=== PATIENT | female | born 1960 | race Caucasian/White ===

== ENCOUNTER 2017-10-10 07:04 | Day surgery (SDC) | payer BC ==
[~2017-10-10 07:04] MED LIST: Lactated Ringers 1,000 ML IV SCH; Levofloxacin/Dextrose 5%-Water 750 MG in Premix Bag 1 BAG IV ONE
[2017-10-10] MEDS ORDERED: fentaNYL 250 MCG/5 ML SDV ONE (07:23)
[2017-10-10] MEDS ORDERED: Rocuronium 10 MG/ML 10 ML Syringe ONE (07:23)
[2017-10-10] MEDS ORDERED: Midazolam 1 MG/ML 2 ML SDV ONE (07:23)
[2017-10-10] MEDS ORDERED: Lidocaine 2% 5 ML SDV ONE (07:23)
[2017-10-10] MEDS ORDERED: Propofol 200 MG/20 ML SDV ONE (07:23)
[2017-10-10] MEDS ORDERED: Ondansetron 4 MG/2 ML SDV ONE (07:23)
[2017-10-10] MEDS ORDERED: Bupivacaine 25%/EPINEPHrine/PF 30 ML ONE (07:34)
[2017-10-10] MEDS ORDERED: Octyl 2-Cyanoacrylate 1 Tube ONE (07:35)
--- NOTE | 2017-10-10 07:55 | PCM.PREANE ---
Preanesthetic Assessment - Anesthesia/Transfusion/Family Hx Anesthesia History: Prior Anesthesia Without Reaction Family History of Anesthesia Reaction: No Transfusion History: No Prior Transfusion(s) Intubation History: Unknown - Review of Systems General: No Symptoms Pulmonary: No Symptoms, Other (usus inhaler for asthma) Cardiovascular: No Symptoms Gastrointestinal: Other (GERD and pain after meals) Neurological: No Symptoms Other: Reports: None - Physical Assessment NPO Status Date: 10/09/17 NPO Status Time: 19:00 O2 Sat by Pulse Oximetry: 99 Respiratory Rate: 15 Vital Signs: Last Vital Signs Temp 97.7 F 10/10/17 07:41 Pulse 68 10/10/17 07:41 Resp 15 10/10/17 07:41 BP 125/70 10/10/17 07:41 Pulse Ox 99 10/10/17 07:41 Height: 5 ft 6 in Weight: 184 lb ASA Class: 2 Mental Status: Alert & Oriented x3 Airway Class: Mallampati = 1 Dentition: Reports: Normal Dentition Thyro-Mental Finger Breadths: 3 Mouth Opening Finger Breadths: 3 Lungs: Clear to Auscultation, Normal Respiratory Effort Cardiovascular: Regular Rate, Regular Rhythm, No Murmurs - Allergies Allergies/Adverse Reactions: Allergies Allergy/AdvReac Type Severity Reaction Status Date / Time cefuroxime [From Ceftin] Allergy Itching Verified 10/07/17 13:50 ibuprofen Allergy Itching Verified 10/07/17 13:50 meperidine [From Demerol] Allergy Hives Verified 10/07/17 13:50 morphine Allergy Hives Verified 10/07/17 13:50 - Blood Blood Available: No Product(s) Available: None - Anesthesia Plan Pre-Op Medication Ordered: None - Acknowledgements Anesthesia Type Planned: General Anesthesia (OET) Pt an Appropriate Candidate for the Planned Anesthesia: Yes Alternatives and Risks of Anesthesia Discussed w Pt/Guardian: Yes Pt/Guardian Understands and Agrees with Anesthesia Plan: Yes PreAnesthesia Questionnaire HEENT History: Reports: Allergic Rhinitis, Other (See Below) Other HEENT History: wears glasses Respiratory History: Reports: Asthma Other Respiratory History: states asthma well controlled, has not used rescue inhaler for over a year Gastrointestinal History: Reports: GERD Musculoskeletal History: Reports: Osteoarthritis, Osteoporosis Other Musculoskeletal History: takes HCTZ for osteoporosis Psychiatric History: Reports: Depression Endocrine/Metabolic History: Reports: Hypothyroidism - Past Surgical History Head Surgeries/Procedures: Reports: None HEENT Surgical History: Reports: Naso-Sinus Surgery, Tonsillectomy Female Surgical History: Reports: Breast Implant, Section Musculoskeletal Surgical History: Reports: Hip Replacement, Knee Replacement - SUBSTANCE USE Smoking Status *Q: Former Smoker Tobacco Use Within Last Twelve Months: No Recreational Drug Use History: No - HOME MEDS Home Medications: Home Meds Albuterol [Ventolin HFA] 2 puff INH TID PRN 10/07/17 [History] Ca Carbonate/Vitamin D3/Vit K [Calcium + D Soft Chewable Tab] 2 tab PO DAILY [History] Celecoxib [CeleBREX] 200 mg PO DAILY 10/07/17 [History] Estradiol Micronized 1 dose TOP DAILY 10/07/17 [History] Fexofenadine/Pseudoephedrine [Jaki-D 24 Hour Tablet] 1 tab PO DAILY 10/07/17 [History] Fluticasone/Salmeterol [Advair 250-50] 1 puff INH BID 10/07/17 [History] Hydrochlorothiazide 12.5 mg PO DAILY 10/07/17 [History] Multivitamin [Multiple Vitamins] 1 tab PO DAILY 10/07/17 [History] Potassium Chloride 2 cap PO DAILY 10/07/17 [History] Progesterone,Micronized [Progesterone] 100 mg PO BID 10/07/17 [History] Thyroid,Pork [Catlett Thyroid] 60 mg PO DAILY 10/07/17 [History] Venlafaxine HCl [Venlafaxine HCl ER] 75 mg PO DAILY 10/07/17 [History] Zafirlukast [Accolate] 20 mg PO BID 10/07/17 [History] - CURRENT (IN HOUSE) MEDS Current Meds: Current Medications Lactated Ringer's (Ringers, Lactated) 1,000 mls @ 125 mls/hr IV ASDIRECTED MATTEO Last Admin: 10/10/17 07:24 Dose: 125 mls/hr Discontinued Medications Fentanyl (Sublimaze) Confirm Administered Dose 250 mcg .ROUTE .STK-MED ONE Stop: 10/10/17 07:24 Levofloxacin/Dextrose 750 mg/ (Premix) 150 mls @ 100 mls/hr IV ONETIME ONE Stop: 10/08/17 16:43 Levofloxacin/Dextrose 750 mg/ (Premix) 150 mls @ 100 mls/hr IV ONETIME ONE Stop: 10/10/17 06:29 Last Admin: 10/10/17 07:24 Dose: 100 mls/hr Bupivacaine HCl/Epinephrine Bitart (Sensorc Mpf 0.25%-Epi 1:[id number]) Confirm Administered Dose 30 mls @ as directed .ROUTE .STK-MED ONE Stop: 10/10/17 07:35 Lidocaine (Xylocaine-Mpf 2%) Confirm Administered Dose 5 ml .ROUTE .STK-MED ONE Stop: 10/10/17 07:24 Midazolam HCl (Versed 1 Mg/Ml) Confirm Administered Dose 2 mg .ROUTE .STK-MED ONE Stop: 10/10/17 07:24 Octyl Cyanoacrylate (Dermabond Advance) Confirm Administered Dose 1 applic .ROUTE .STK-MED ONE Stop: 10/10/17 07:36 Ondansetron HCl (Zofran) Confirm Administered Dose 4 mg .ROUTE .STK-MED ONE Stop: 10/10/17 07:24 Propofol (Diprivan 20 Ml) Confirm Administered Dose 200 mg .ROUTE .STK-MED ONE Stop: 10/10/17 07:24 Rocuronium [place] (Zemuron) Confirm Administered Dose 100 mg .ROUTE .STK-MED ONE Stop: 10/10/17 07:24
[2017-10-10] MEDS ORDERED: Glycopyrrolate 0.2 MG/ML SDV ONE (08:52)
[2017-10-10] MEDS ORDERED: Neostigmine Methylsulfate 1 MG/ML 5 ML Syringe ONE (08:52)
--- NOTE | 2017-10-10 09:25 | PCM.OPNOTE ---
- General Post-Op/Procedure Note Date of Surgery/Procedure: 10/10/17 Operative Procedure(s): lap miesha Findings: gb yellow and green, interact w surrounding, cw chonic and acute cholecystitis; [id number] Pre Op Diagnosis: biliary dyskinesia Post-Op Diagnosis: Same Anesthesia Technique: General ET Tube (stephen), Moderate Sedation Primary Surgeon: Lester Ward Pathology: sent Complications: None Condition: Good
[2017-10-10] MEDS: fentaNYL 100 MCG/2 ML SDV IVPUSH PRN ×4 (09:29→09:49)
--- NOTE | 2017-10-10 09:38 | PCM.POSTAN ---
POST ANESTHESIA ASSESSMENT - MENTAL STATUS Mental Status: Oriented, Somnolent - RESPIRATORY Respiratory Status: Respiratory Rate WNL, Airway Patent, O2 Saturation Stable - CARDIOVASCULAR CV Status: Pulse Rate WNL, Blood Pressure Stable - PAIN Pain Score: 4 (fentanyl was required) - POST OP HYDRATION Hydration Status: Adequate & Stable
--- NOTE | 2017-10-10 11:15 | PCM48HPAN ---
Post Anesthesia Note - EVALUATION WITHIN 48HRS OF ANESTHETIC Vital Signs in Normal Range: Yes Patient Participated in Evaluation: Yes Respiratory Function Stable: Yes Airway Patent: Yes Cardiovascular Function Stable: Yes Hydration Status Stable: Yes Pain Control Satisfactory: Yes Nausea and Vomiting Control Satisfactory: Yes Mental Status Recovered: Yes Resp Rate: 15
--- NOTE | 2017-10-10 13:26 | OR ---
SURGEON: Lester Ward MD DATE OF PROCEDURE: 10/10/2017 PREOPERATIVE DIAGNOSIS: Biliary dyskinesia. POSTOPERATIVE DIAGNOSIS: Chronic and acute cholecystitis. PROCEDURE PERFORMED: Laparoscopic cholecystectomy. COMPLICATIONS: None. FINDINGS: Gallbladder is yellow and green, and interacting with surrounding organ consistent with chronic and acute cholecystitis and wall is not thickened. PROCEDURE IN DETAIL: The patient was taken to the operating room and placed in the supine position. Upon induction of general endotracheal anesthesia, patient's surgery was then started. The patient was taken to the operating room and placed in the supine position. After the intubation of general endotracheal anesthesia, the patient's abdomen was prepped and draped in sterile fashion. A time-out has been called, the patient was identified, the procedure was identified, and antibiotic was identified. The procedure then began. After assessment of appropriate landmarks, using Optiview, a 12 millimeter trocar was placed supraumbilically. This was then followed with pneumoperitoneum. After accomplishment with pneumoperitoneum, 3 to 5 millimeter trocar were placed in the right upper quadrant and epigastrium. Placement of the 5 millimeter trocars were placed under direct video supervision. Upon gaining entrance to the abdominal cavity, a retractor retracted the gallbladder to the dome of the liver. If there was any adherence, the adherence will be taken down first. Then we will work on the Calot triangle and expose the tubular structure of the cystic duct, and skeletonize the duct from the surrounding structures. A clip was placed distally. Then using a scissor, a small cut was made at the cystic duct. A cholangiogram catheter inserted percutaneously was then inserted via the cystic duct opening. The cholangiogram was then performed. The cholangiogram delineate the entire biliary tree anatomy. and the cholangiogram catheter was removed, and three more clips placed proximally, and placement of the clips and the transection that was performed with the posterior prong of the instrument was clearly visualized prior to exercising the procedure. Then further dissection of the Calot triangle, the cystic artery was encountered. It was clipped four times, three proximally and one distally, and then transected. Again, the placement of the clip and the transection was performed with care, ensuring that the posterior prong of the instrument was clearly visualized prior to exercising the procedure. Then the gallbladder was skeletonized from the liver bed and then retrieved from the umbilical site. Following that we looked at the liver bed and good hemostasis was achieved using electrocautery. The trocar was then removed under direct video supervision. One big breath was given to avoid postoperative nausea prior to removing the trocar. This was then followed with closing of the umbilical hole trocar site using 0- Vicryl and 4-0 Vicryl to approximate the skin, and then followed with Dermabond. This was then followed with 4-0 Vicryl on the other three trocar sites and Dermabond. The patient was then awakened and extubated, and transferred to the recovery room in hemodynamically stable condition. The patient tolerated the procedure well. There were no intraoperative complications. Dr. Ward was present through the whole procedure. GOPI / DAVE /[id number]
== END 2017-10-10 12:05 | disposition home or self-care (01) ==
LOC: MW.SDS 07:04
PROVIDERS: ATTEND Surgery
DX: K81.1 Chronic cholecystitis (principal); J45.909 Unspecified asthma, uncomplicated; E03.9 Hypothyroidism, unspecified; E05.90 Thyrotoxicosis, unspecified without thyrotoxic crisis or storm; K21.9 Gastro-esophageal reflux disease without esophagitis; F32.9 Major depressive disorder, single episode, unspecified; F41.9 Anxiety disorder, unspecified; Z87.891 Personal history of nicotine dependence; Z88.5 Allergy status to narcotic agent; Z88.6 Allergy status to analgesic agent
CPT/HCPCS: 47563; A9270; J1956; J2250; J2405; J3010; J7120; J2704